=== PATIENT | female | born 1970 | race American Indian/Alaskan Native ===

== ENCOUNTER 2022-06-29 07:14 | Outpatient (CLI) | payer BC ==
[2022-06-29] MEDS ORDERED: SINCALIDE 5 MCG VIAL IV ONE ×2 (08:00→08:56)
[2022-06-29] MEDS ORDERED: WATER FOR INJ Sterile (PF) 10 ML ONE (08:01)
[2022-06-29] MEDS ORDERED: WATER FOR INJ Sterile (PF) 10 ML IV ONE (08:07)
--- NOTE | 2022-06-29 10:33 | Nuclear Medicine Report ---
NUCLEAR MEDICINE HEPATOBILIARY SCAN INDICATION: R10.13 DYSPEPSIA. TECHNIQUE: Radiotracer: Tc-99m mebrofenin (by IV): 5.3 mCi. Gallbladder Stimulant: 2.18 mcg of CCK FINDINGS: Hepatic activity: Normal. Biliary activity: Normal. Common bile duct activity at 10 minutes. Gallbladder activity: Normal at 10 minutes. Small bowel activity: Normal at 30 minutes. The gallbladder ejection fraction is decreased measuring 14%. The patient reports similar pain and mi ld cramping/nausea during infusion of CCK. IMPRESSION: No biliary obstruction. Decreased gallbladder ejection fraction suggesting biliary dyskinesia. Signer Name: Varinder Ott Jr, MD Signed: 06/29/2022 10:29 AM Workstation Name: [id number]
== END 2022-06-29 07:15 | disposition home or self-care (01) ==
LOC: NM 07:14
PROVIDERS: ATTEND Internal Medicine Gastroenterology
DX: R10.13 Epigastric pain (principal)
CPT/HCPCS: 78227; A9537; J2805